=== PATIENT | female | born 1990 | race Caucasian/White ===

== ENCOUNTER 2016-05-06 18:52 | Emergency (ER) | payer OTHER ==
[~2016-05-06] VITALS: Wt 36.3 kg
[~2016-05-06 18:52] MED LIST: BACTRIM 400 MG-1 TAB PO; BACTRIM DS 8001 TA1 PO; CELLCEPT500 M1 IV; CELLCEPT500 MG PO; CIPRO250 MG PO; CIPRO500 MG PO; CIPROFLOXACIN500 MG PO; CLINDAMYCIN HC300 MG PO; Ciprofloxacin500 MG PO; FOLIC ACID1 MG PO; HYDROCODONE BIT1 T11 PO; IRON325 M1 PO; K-PHOS ORIGINA500 MG PO; MAGNESIUM ELEME30 MG PO; PERCOCET 325 MG1 TA7 PO; POTASSIUM GLUC550 M1 PO; PROGRAF1 MG PO; WELLBUTRIN75 MG PO; ZOFRAN4 MG PO; [UNRECOGNIZED DRUG - REMARK]
[2016-05-06] MEDS ORDERED: SMZ-TMP 400 MG-1 TAB PO (19:22)
[2016-05-06] MEDS ORDERED: CLINDAMYCIN150 MG PO (21:27)
[2016-05-06] MEDS ORDERED: CIPRO500 MG PO (21:27)
== END 2016-05-06 19:52 | disposition home or self-care (01) ==
LOC: ED 18:52
DX: L08.9 Local infection of the skin and subcutaneous tissue, unspecified (principal); Z88.0 Allergy status to penicillin; Z88.1 Allergy status to other antibiotic agents; Z88.6 Allergy status to analgesic agent; Z91.040 Latex allergy status; Z79.899 Other long term (current) drug therapy

== ENCOUNTER 2016-08-24 14:21 | Emergency (ER) | payer OTHER ==
[~2016-08-24] VITALS: Wt 36.3 kg
[~2016-08-24 14:21] MED LIST changes: +CLINDAMYCIN150 MG PO; +SMZ-TMP 400 MG-1 TAB PO
[2016-08-24 15:22] LABS: HEMOGLOBIN 9.9 g/dl (12.0-16.0); MEAN CORPUSCULAR HGB 29.4 pg (27.0-31.0); MEAN CORPUSCULAR HGB CONC 31.9 g/dl (33.0-37.0); MEAN PLATELET VOLUME 10.5 fl (9.6-12.3); PLATELET COUNT AUTOMATED 341 10*3/uL (130-400); RED BLOOD COUNT 3.37 10*6/uL (4.10-5.10); RED CELL DISTRI WIDTH 14.1 % (0-14.5); WHITE BLOOD COUNT 23.6 10*3/uL (4.8-10.8)
[2016-08-24 15:36] LABS: ALBUMIN 3.7 gm/dl (3.1-4.5); ALKALINE PHOSPHATASE 184 U/L (45-117); BILIRUBIN, TOTAL 0.8 mg/dl (0.2-1.0); BUN 64 mg/dl (7-24); CARBON DIOXIDE 11 mmol/L (21-32); CHLORIDE 89 mmol/L (98-107); EST GLOM FILT AFRICAN AMERICAN 15 ml/min; GLUCOSE 178 mg/dL (65-99); POTASSIUM 3.4 mmol/L (3.5-5.1); SGOT/AST 661 IU/L (3-35); SGPT/ALT 488 U/L (12-78); SODIUM 131 mmol/L (136-145); TOTAL PROTEIN 6.6 gm/dL (6.4-8.2)
[2016-08-24 15:39] LABS: B-hCG (QUALITATIVE) NEGATIVE (NEGATIVE)
[2016-08-24 15:47] LABS: LYMPHOCYTE # 0.7 10*3/uL (1.3-4.4); MONOCYTE # 0.5 10*3/uL (0.1-1.0); NEUTROPHIL # 22.4 10*3/uL (2.3-7.9); NEUTROPHILS 95 % (47-73); POLYCHROMASIA SLIGHT; TOTAL CELLS COUNTED 100 #CELLS
[2016-08-24 15:48] LABS: BILIRUBIN NEGATIVE (NEGATIVE); BLOOD 1+ (NEGATIVE); CLARITY CLOUDY (CLEAR); COLOR YELLOW (YELLOW); GLUCOSE NEGATIVE (NEGATIVE); KETONE NEGATIVE (NEGATIVE); LEUKO ESTERASE 2+ (NEGATIVE); NITRITE NEGATIVE (NEGATIVE); PROTEIN 1+ (NEGATIVE); SPECIFIC GRAVITY <= 1.005 (1.005-1.030); UROBILINOGEN 0.2 E.U./dl (0.2-1.0)
[2016-08-24 15:51] LABS: BURR CELLS MANY
[2016-08-24 15:52] LABS: PLATELET SUFFICIENCY NORMAL (NORMAL)
[2016-08-24 16:06] LABS: BACTERIA 3+
[2016-08-24 16:07] LABS: URINE REFLEX COMMENT YES (NO); WBC 21-30 wbc/hpf (0-5)
[2016-08-24 17:19] LABS: LA>2 REFLEX 2 HR DRAW NOW
[2016-08-24 17:37] LABS: LA>2 RFLX FOLLOW UP AT 2 HRS 7.6 mmol/L (0.4-2.0)
[2016-08-24 19:13] VITALS: BP 107/66
[2016-08-24 19:34] LABS: LA>2 REFLEX 4 HR DRAW NOW
== END 2016-08-24 23:39 | disposition short-term general hospital (02) ==
LOC: ED 14:21
PROVIDERS: Physician Assistant
DX: A41.9 Sepsis, unspecified organism (principal); R65.20 Severe sepsis without septic shock; N17.9 Acute kidney failure, unspecified; T83.518A Infection and inflammatory reaction due to other urinary catheter, initial encounter; B27.90 Infectious mononucleosis, unspecified without complication; K85.90 Acute pancreatitis without necrosis or infection, unspecified; K52.9 Noninfective gastroenteritis and colitis, unspecified; R79.89 Other specified abnormal findings of blood chemistry; Z88.0 Allergy status to penicillin; Z88.6 Allergy status to analgesic agent; Z91.040 Latex allergy status; Z88.1 Allergy status to other antibiotic agents